=== PATIENT | male | born 1985 | race Caucasian/White ===

== ENCOUNTER 2021-03-30 00:30 | Emergency (ER) | payer OTHER, SELFPAY ==
--- NOTE | 2021-03-30 | ECG_ITS ---
Test Reason : SOB Blood Pressure : / mmHG Vent. Rate : 089 BPM Atrial Rate : 089 BPM P-R Int : 158 ms QRS Dur : 076 ms QT Int : 360 ms P-R-T Axes : 028 015 035 degrees QTc Int : 438 ms Normal sinus rhythm Normal ECG When compared with ECG of 23-OCT-2016 20:50, No significant change was found Referred By: Generic ED Physician Electronically Signed By:William White
--- NOTE | ~2021-03-30 | XR_ITS ---
EXAMINATION: XR CHEST CLINICAL INFORMATION: Shortness of breath COMPARISON: 10/23/2016 TECHNIQUE: Frontal view of the chest was obtained. FINDINGS: No significant abnormality is noted involving the heart, lungs, mediastinum, bony thorax or soft tissues. XR/XR chest 1V IMPRESSION: Unremarkable examination.
[2021-03-30 00:32] VITALS: BP 148/80; BP 156/86; PULSE 98; PULSE 99; RESP 18; TEMP 37; O2SAT 95; BMI 52.9
[2021-03-30 01:20] LABS: Basophils Percent Auto 0.3 % (0-2); Eosinophils Absolute Auto 0.2 X10*3/uL (0.0-0.4); Eosinophils Percent Auto 3.7 % (0-4); Hematocrit 40.7 % (42-52); Hemoglobin 13.5 g/dl (14.0-18.0); Imm Gran Abs Auto 0.01 X10*3/uL (0.00-0.03); Imm Gran Pct Auto 0.2 % (0.0-0.4); Lymphocytes Percent Auto 17.4 % (20-40); MANUAL DIFF FLAG NO; Mean Corpuscular HGB Conc 33.2 g/dl (31.0-36.0); Mean Corpuscular Hemoglobin 27.9 pg (27.0-33.0); Mean Corpuscular Volume 84.1 fL (80-98); Mean Platelet Volume 10.3 fL (9.4-12.4); Monocytes Absolute Auto 0.5 X10*3/uL (0.1-1.2); Monocytes Percent Auto 7.8 % (2-11); Neutrophils Absolute Auto 4.1 X10*3/uL (2.0-8.3); Neutrophils Percent Auto 70.6 % (45-73); Platelet Count 173 X10*3/uL (160-400); Red Blood Count 4.84 X10*6/uL (4.60-5.80); Red Cell Distribution Width 12.6 % (11.0-16.0); White Blood Count 5.7 X10*3/uL (4.8-10.8)
[2021-03-30 01:35] LABS: Lactic Acid 1.2 mmol/L (0.5-2.0)
[2021-03-30 01:36] LABS: COVID-19 Test Negative (Negative); IDNOW Serial# 9DD0AD1C
[2021-03-30 01:45] LABS: Troponin-I High Sensitivity < 3.5 ng/L (<3.5-35.0)
[2021-03-30 01:49] LABS: Alanine Aminotransferase 31 U/L (0-40); Albumin Level 4.2 g/dL (3.5-5.0); Alkaline Phosphatase 122 U/L (39-117); Anion Gap 13 (12-20); Aspartate Amino Transferase 33 U/L (5-37); Bilirubin Total 0.3 mg/dL (0.0-1.0); Blood Urea Nitrogen 18 mg/dL (9-16); Calcium 9.1 mg/dL (8.4-10.2); Carbon Dioxide 27 mmol/L (22-29); Chloride 102 mmol/L (96-108); Creatinine Clr Calc Pharmacy 150.2; Estimated Glomerular Filt Rate > 60; Glucose Random 95 mg/dL (60-115); Potassium 3.7 mmol/L (3.3-5.1); Sodium 138 mmol/L (135-145); Total Protein 7.3 g/dL (6.5-8.0)
--- NOTE | 2021-03-30 03:39 | ED.GENADULT ---
HPI - General Adult General Chief complaint: Dyspnea Stated complaint: INCREASED SOB X'S WEEKS,94% ON DUONEB Time Seen by Provider: 03/30/21 03:38 Source: patient Mode of arrival: ambulatory History of Present Illness HPI narrative: 35-year-old male with history of shortness of breath progressively worsening over the past 2 weeks but denies any cough or sore throat or ear pain. Patient states ?feels like my lungs are sore?. Otherwise, patient denies receiving any COVID-19 vaccination, fevers, chills, but experiencing some nausea but denies any abdominal pain/diarrhea/urinary symptoms. Patient denies body aches, but he states it feels like he has the flu. Related Data Previous Rx's Medication Instructions Recorded prednisone 20 mg tablet 40 mg PO DAILY 4 Days #8 tab 03/30/21 Allergies Allergy/AdvReac Type Severity Reaction Status Date / Time sulfamethoxazole Allergy Severe HIVES Unverified 05/15/20 15:26 [From BACTRIM] trimethoprim [From BACTRIM] Allergy Severe HIVES Unverified 05/15/20 15:26 Sulfa (Sulfonamide Allergy Unknown HIVES Unverified 05/15/20 15:26 Antibiotics) [SULFA (SULFONAMIDE ANTIBIOTICS)] Review of Systems Review of Systems: Pertinent positives and negatives as stated in HPI 10 point review of systems is otherwise negative. PMFSH Past Medical History Source: nursing notes reviewed Medical History Asthma Obesity Social History Social History Advance Directives: No Advance Directives Information Provided: No Physical Exam Vital Signs: Vital Signs: Last Vital Signs Temp 98.6 F 03/30/21 00:32 Pulse 114 H 03/30/21 04:44 Resp 14 03/30/21 04:44 BP 148/77 H 03/30/21 04:44 Pulse Ox 93 03/30/21 04:44 Body Mass Index 52.9 VITAL SIGNS: Reviewed. GENERAL: Well developed, well nourished, in no acute distress. HEAD: Normocephalic/atraumatic EYES: PERRLA, EOMI EARS: Ext canals without abnormality, TMs non-bulging and non-erythematous NOSE: Nares patent bilateral OROPHARYNX: no oral lesions noted, posterior pharynx clear and non-erythematous without noted tonsillar enlargement/erythema/exudates NECK: Supple, no adenopathy LUNGS: Expiratory wheeze with scattered rhonchi, no tachypnea, no retractions SpO2<95> CARDIOVASCULAR: Regular rate and rhythm without noted murmurs ABDOMEN: Obese, Soft, non-tender, non-distended with bowel sounds. SKIN: Inspection of the skin reveals no rashes NEUROLOGIC: Alert and oriented x 4. Strength and sensation to light touch were grossly intact x 4. Course Course Course Narrative: 35-year-old male with history and clinical presentation suggestive of mild asthma exacerbation and patient later endorsed vaping marijuana. Review of all investigations without acute findings and on re-evaluation after receiving albuterol treatment with initial dose of prednisone patient reports that he is feeling much better. He states he ran out of his albuterol inhaler approximately 2 days ago. Patient was then discharged home in stable condition. Medical Decision Making Lab Data Result diagrams: 03/30/21 01:14 03/30/21 01:14 Labs: Lab Results 03/30/21 03/30/21 03/30/21 Range/Units 01:06 01:14 01:14 WBC 5.7 (4.8-10.8) X10*3/uL RBC 4.84 (4.60-5.80) X10*6/uL Hgb 13.5 L (14.0-18.0) g/dl Hct 40.7 L (42-52) % MCV 84.1 (80-98) fL MCH 27.9 (27.0-33.0) pg MCHC 33.2 (31.0-36.0) g/dl RDW 12.6 (11.0-16.0) % Plt Count 173 (160-400) X10*3/uL MPV 10.3 (9.4-12.4) fL Immature Gran % (Auto) 0.2 (0.0-0.4) % Neut % (Auto) 70.6 (45-73) % Lymph % (Auto) 17.4 L (20-40) % Douglas % (Auto) 7.8 (2-11) % Eos % (Auto) 3.7 (0-4) % Baso % (Auto) 0.3 (0-2) % Lymph # (Auto) 1.0 L (1.2-4.9) X10*3/uL Douglas # (Auto) 0.5 (0.1-1.2) X10*3/uL Eos # (Auto) 0.2 (0.0-0.4) X10*3/uL Baso # (Auto) 0.0 (0.0-0.2) X10*3/uL Abs Immat Gran (auto) 0.01 (0.00-0.03) X10*3/uL Absolute Neuts (auto) 4.1 (2.0-8.3) X10*3/uL Absolute Nucleated RBC 0.000 (0.0-0.012) X10*3/uL Nucleated RBC % (auto) 0.0 (0.0-0.2) /100WBC Sodium 138 (135-145) mmol/L Potassium 3.7 (3.3-5.1) mmol/L Chloride 102 (96-108) mmol/L Carbon Dioxide 27 (22-29) mmol/L Anion Gap 13 (12-20) BUN 18 H (9-16) mg/dL Creatinine 0.94 (0.5-1.4) mg/dL Estim Creat Clear Calc 150.2 Estimated GFR > 60 Random Glucose 95 (60-115) mg/dL Lactic Acid (0.5-2.0) mmol/L Calcium 9.1 (8.4-10.2) mg/dL Total Bilirubin 0.3 (0.0-1.0) mg/dL AST 33 (5-37) U/L ALT 31 (0-40) U/L Alkaline Phosphatase 122 H (39-117) U/L Troponin I High Sens (<3.5-35.0) ng/L Total Protein 7.3 (6.5-8.0) g/dL Albumin 4.2 (3.5-5.0) g/dL COVID-19 (PAT) Negative (Negative) COVID-19 Clin Com See Note 03/30/21 03/30/21 Range/Units 01:14 01:14 WBC (4.8-10.8) X10*3/uL RBC (4.60-5.80) X10*6/uL Hgb (14.0-18.0) g/dl Hct (42-52) % MCV (80-98) fL MCH (27.0-33.0) pg MCHC (31.0-36.0) g/dl RDW (11.0-16.0) % Plt Count (160-400) X10*3/uL MPV (9.4-12.4) fL Immature Gran % (Auto) (0.0-0.4) % Neut % (Auto) (45-73) % Lymph % (Auto) (20-40) % Douglas % (Auto) (2-11) % Eos % (Auto) (0-4) % Baso % (Auto) (0-2) % Lymph # (Auto) (1.2-4.9) X10*3/uL Douglas # (Auto) (0.1-1.2) X10*3/uL Eos # (Auto) (0.0-0.4) X10*3/uL Baso # (Auto) (0.0-0.2) X10*3/uL Abs Immat Gran (auto) (0.00-0.03) X10*3/uL Absolute Neuts (auto) (2.0-8.3) X10*3/uL Absolute Nucleated RBC (0.0-0.012) X10*3/uL Nucleated RBC % (auto) (0.0-0.2) /100WBC Sodium (135-145) mmol/L Potassium (3.3-5.1) mmol/L Chloride (96-108) mmol/L Carbon Dioxide (22-29) mmol/L Anion Gap (12-20) BUN (9-16) mg/dL Creatinine (0.5-1.4) mg/dL Estim Creat Clear Calc Estimated GFR Random Glucose (60-115) mg/dL Lactic Acid 1.2 (0.5-2.0) mmol/L Calcium (8.4-10.2) mg/dL Total Bilirubin (0.0-1.0) mg/dL AST (5-37) U/L ALT (0-40) U/L Alkaline Phosphatase (39-117) U/L Troponin I High Sens < 3.5 (<3.5-35.0) ng/L Total Protein (6.5-8.0) g/dL Albumin (3.5-5.0) g/dL COVID-19 (PAT) (Negative) COVID-19 Clin Com ECG Data Attestation: I personally reviewed and interpreted this ECG as follows: Prior ECG tracings: available for review (10/23/2016 no acute changes on comparison) Interpretation: Normal sinus rhythm, HR-89, no STEMI, VA/QRS/QTC are within normal limits. Discharge Plan Discharge Clinical Impression: Asthma with exacerbation Patient Disposition: Home, Self-Care Instructions: Asthma (ED) Additional Instructions: 1. Resume all home medications as prescribed. 2. Follow-up with your primary care provider in the next 1-2 days for re-evaluation and further outpatient management of your asthma, highly recommend you stop vaping marijuana. Return to the ER for acute worsening of symptoms. Prescriptions: New prednisone 20 mg tablet 40 mg PO DAILY 4 Days Qty: 8 RF: 0 Referrals: Physician,Unknown [Primary Care Provider] - 2 days
[2021-03-30] MEDS: Albuterol Sulfate (0.083%) 2.5 MG/3 ML VIAL.NEB 5 MG INHALE (03:55)
[2021-03-30 03:57] VITALS: PULSE 103; O2SAT 93
[2021-03-30] MEDS: Acetaminophen 325 MG TABLET 975 MG PO (04:00)
[2021-03-30] MEDS: predniSONE 20 MG TABLET 40 MG PO (04:01)
[2021-03-30] MEDS: Ibuprofen 400 MG TABLET PO (04:01)
[2021-03-30 04:44] VITALS: BP 148/77; PULSE 114; RESP 14; O2SAT 93
[2021-03-30] MEDS: Albuterol Sulfate 90 MCG 8 GM INHALER 4 PUFF INHALE (05:29)
[2021-03-30 05:30] VITALS: PULSE 109; O2SAT 95
--- NOTE | 2021-03-30 23:26 | PC.NURSE ---
LAB CALLED POSITIVE BLOOD CULTURE. GM + COCCI IN CLUSTERS. REPORTED TO DINA FLEMING NP.
== END 2021-03-30 05:53 | disposition home or self-care (01) ==
PROVIDERS: Emergency Provider Student in an Organized Health Care Education/Training Program
DX: J45.901 Unspecified asthma with (acute) exacerbation (principal); Z20.822 Contact with and (suspected) exposure to COVID-19; E66.9 Obesity, unspecified
CPT/HCPCS: 36415; 71045; 80053; 83605; 84484; 85025; 87040; 87147; 87205; 87635; 93005; 94640; 99284

== ENCOUNTER 2021-03-31 18:19 | Emergency (ER) | payer OTHER, SELFPAY ==
[2021-03-31 19:01] VITALS: BP 158/79; PULSE 90; RESP 18; TEMP 37; O2SAT 98; BMI 41.3
== END 2021-03-31 23:44 | disposition left against medical advice (07) ==
PROVIDERS: Emergency Provider Emergency Medicine; PCP Internal Medicine
DX: R79.89 Other specified abnormal findings of blood chemistry (principal)
CPT/HCPCS: 99282

== ENCOUNTER 2021-04-02 21:30 | Emergency (ER) | payer OTHER, SELFPAY ==
--- NOTE | ~2021-04-02 | XR_ITS ---
EXAMINATION: XR CHEST CLINICAL INFORMATION: Cough COMPARISON: 03/30/2021 TECHNIQUE: Frontal view of the chest was obtained. FINDINGS: Patchy opacities within the bilateral lower lungs, possibly left upper lobe as well however this may relate to summation shadow. No pleural effusion or pneumothorax. Normal heart size and pulmonary vascularity. No acute or suspicious osseous abnormalities. XR/XR chest 1V IMPRESSION: Faint patchy opacities within the lower lungs, and possibly left upper lobe. Findings suggestive of a mild pneumonitis
[2021-04-02 21:51] VITALS: BP 114/80; PULSE 84; RESP 18; TEMP 36.8; O2SAT 96; BMI 41.3
--- NOTE | 2021-04-03 00:31 | ED.GENADULT ---
HPI - General Adult General Chief complaint: Recheck/Abnormal Lab/Rx Stated complaint: weakness, fatigue Time Seen by Provider: 04/03/21 00:26 Source: patient Mode of arrival: ambulatory Limitations: no limitations History of Present Illness HPI narrative: 35-year-old male came in after he was called back from the emergency department for positive blood culture. This is a 35-year-old male who is evaluated in the emergency department for coughing patient found to have unremarkable chest x-ray patient was discharged on short course of prednisone, next day patient went to an urgent care for persistent symptoms and coughing, patient was put on doxycycline and extended course of steroid, patient was called because he grew Gram-positive cocci in cluster in 1 of the blood culture, patient returned to the hospital blood left from the waiting room before being seen, patient returned today because his been feeling dizzy and headache and still coughing. The patient declined any fever, chills. Patient feels overall his lungs are cleaning up and his symptoms is improving. Related Data Home Medications Medication Instructions Recorded Confirmed albuterol sulfate 90 mcg/actuation 2 puff INHALATION QID PRN 03/31/21 aerosol inhaler betamethasone dipropionate 0.05 % appl TOPICAL DIRECTED 03/31/21 topical cream omeprazole 20 mg capsule,delayed 20 mg PO DAILY 03/31/21 release triamcinolone acetonide 0.1 % appl TOPICAL BID PRN 03/31/21 topical cream Previous Rx's Medication Instructions Recorded prednisone 20 mg tablet 40 mg PO DAILY 4 Days #8 tab 03/30/21 albuterol sulfate 90 mcg/actuation 2 puff INHALATION Q4-6H PRN #8.5 g 03/31/21 aerosol inhaler (ProAir HFA) doxycycline hyclate 100 mg tablet 100 mg PO BID 10 Days #20 tab 03/31/21 prednisone 20 mg tablet 20 mg PO DAILY 9 Days #18 tab 03/31/21 Allergies Allergy/AdvReac Type Severity Reaction Status Date / Time sulfamethoxazole Allergy Severe HIVES Verified 04/02/21 21:51 [From BACTRIM] trimethoprim [From BACTRIM] Allergy Severe HIVES Verified 04/02/21 21:51 Sulfa (Sulfonamide Allergy Unknown HIVES Verified 04/02/21 21:51 Antibiotics) [SULFA (SULFONAMIDE ANTIBIOTICS)] Review of Systems Review of Systems: All other systems are reviewed and are negative Constitutional: Reports as per HPI and Reports no additional constitutional complaints Eyes: Reports as per HPI and Reports no additional eye complaints Reports system reviewed and no additional complaints, except as documented Cardiovascular: Reports as per HPI and Reports no additional cardiovascular complaints Respiratory: Reports as per HPI and Reports no additional respiratory complaints Gastrointestinal: Reports as per HPI and Reports no additional gastrointestinal complaints Genitourinary: Reports no additional female genitourinary complaints Musculoskeletal: Reports no additional musculoskeletal complaints Skin/Breast: Reports system reviewed and no additional complaints, except as docu Psychiatric: Reports no additional psychiatric complaints Endocrine: Reports no additional endocrine complaints Hematologic/Lymphatic: Reports no additional hematologic/lymphatic complaints Allergic/Immunologic: Reports no additional allergic/immunologic complaints Reports system reviewed and no additional complaints, except as documented and Reports Abnormal speech present [facility] Past Medical History Medical History Asthma Obesity Social History Social History Advance Directives: No Advance Directives Information Provided: No Physical Exam Vital Signs: Vital Signs: Last Vital Signs Temp 98.2 F 04/02/21 21:51 Pulse 84 04/02/21 21:51 Resp 18 04/02/21 21:51 BP 114/80 04/02/21 21:51 Pulse Ox 96 04/02/21 21:51 Body Mass Index 41.3 Vital signs have been reviewed as appeared to be correct. Blood pressure normal. Heart rate normal. Respiration rate normal. Temperature normal. Oxygen saturation normal. Appearance: Alert. Oriented X3. No acute distress. Head: Normal external exam. Normocephalic. Atraumatic. No Vazquez signs noted. No raccoon eyes noted Eyes: PERRLA. EOMI. Conjunctiva and sclera normal. Eyelids normal. ENT: TM's Normal. Pharynx normal. Uvula midline. Moist mucous membranes. No trismus noted. No drooling noted. No muffled voice noted. Neck: Normal inspection. Neck supple. FROM. No adenopathy. Thyroid Normal. No meningeal signs. No neck mass noted. CVS: Normal heart rate and rhythm. Heart sound normal. No murmurs noted. Pulses normal throughout. Respiratory: No respiratory distress. Painless inspiration. Breath sounds normal. No wheezes/rales/rhonchi noted. Chest nontender. No accessory muscle usage noted or decreased air movement noted. Abdomen: Soft and nontender. Bowel sounds normal in all 4 quadrants. No distention noted. No organomegaly noted. No visible injury noted. Back: No CVA tenderness. Full range of motion noted. Skin: Skin warm and dry. Normal skin color. Normal skin turgor. No rashes/lesions/lacerations noted. Extremities: No lower extremity edema. Extremities exhibit normal range of motion. Extremities nontender. Neuro: Oriented X 3. Cranial nerve exam: II-XII are grossly intact No motor deficit. No sensory deficit. Reflexes normal. Course Course Course Narrative: Assessment and plan. 35-year-old male was called in for positive blood culture for Gram-positive cocci in cluster ?likely contaminated ?patient is feeling better, has a normal wbc's, patient is already taking doxycycline for 10 days course (patient on his 3rd day) patient also have prednisone course. Patient declined any fever or chills. However patient was instructed if he feels any fever or chills or worsening of his breathing or coughing. Blood culture is pending patient will be contacted if any other growth in the culture. Medical Decision Making Lab Data Lab results reviewed: Yes I reviewed the patient's lab results. Result diagrams: 04/03/21 01:33 04/03/21 01:33 Labs: Lab Results 04/03/21 04/03/21 04/03/21 Range/Units 01:19 01:32 01:33 WBC 7.4 (4.8-10.8) X10*3/uL RBC 4.57 L (4.60-5.80) X10*6/uL Hgb 12.9 L (14.0-18.0) g/dl Hct 38.6 L (42-52) % MCV 84.5 (80-98) fL MCH 28.2 (27.0-33.0) pg MCHC 33.4 (31.0-36.0) g/dl RDW 12.8 (11.0-16.0) % Plt Count 222 D (160-400) X10*3/uL MPV 9.8 (9.4-12.4) fL Immature Gran % (Auto) 0.7 H (0.0-0.4) % Neut % (Auto) 68.4 (45-73) % Lymph % (Auto) 26.6 (20-40) % [place] % (Auto) 4.2 (2-11) % Eos % (Auto) 0.0 (0-4) % Baso % (Auto) 0.1 (0-2) % Lymph # (Auto) 2.0 (1.2-4.9) X10*3/uL [place]mer # (Auto) 0.3 (0.1-1.2) X10*3/uL Eos # (Auto) 0.0 (0.0-0.4) X10*3/uL Baso # (Auto) 0.0 (0.0-0.2) X10*3/uL Abs Immat Gran (auto) 0.05 H (0.00-0.03) X10*3/uL Absolute Neuts (auto) 5.0 (2.0-8.3) X10*3/uL Absolute Nucleated RBC 0.000 (0.0-0.012) X10*3/uL Nucleated RBC % (auto) 0.0 (0.0-0.2) /100WBC Sodium (135-145) mmol/L Potassium (3.3-5.1) mmol/L Chloride (96-108) mmol/L Carbon Dioxide (22-29) mmol/L Anion Gap (12-20) BUN (9-16) mg/dL Creatinine (0.5-1.4) mg/dL Estim Creat Clear Calc Estimated GFR Random Glucose (60-115) mg/dL Lactic Acid 0.7 (0.5-2.0) mmol/L Calcium (8.4-10.2) mg/dL Urine Color YELLOW Urine Appearance CLEAR Urine pH 7.0 (5.0-8.0) Ur Specific [place] 1.020 (1.005-1.025) Urine Protein NEG (NEG-TRACE) MG/DL Urine Glucose (UA) NEG (NEG) MG/DL Urine Ketones NEG (NEG) MG/DL Urine Blood NEG (NEG) Urine Nitrite NEG (NEG) Ur Leukocyte Esterase NEG (NEG) 04/03/21 Range/Units 01:33 WBC (4.8-10.8) X10*3/uL RBC (4.60-5.80) X10*6/uL Hgb (14.0-18.0) g/dl Hct (42-52) % MCV (80-98) fL MCH (27.0-33.0) pg MCHC (31.0-36.0) g/dl RDW (11.0-16.0) % Plt Count (160-400) X10*3/uL MPV (9.4-12.4) fL Immature Gran % (Auto) (0.0-0.4) % Neut % (Auto) (45-73) % Lymph % (Auto) (20-40) % [place] % (Auto) (2-11) % Eos % (Auto) (0-4) % Baso % (Auto) (0-2) % Lymph # (Auto) (1.2-4.9) X10*3/uL [place] # (Auto) (0.1-1.2) X10*3/uL Eos # (Auto) (0.0-0.4) X10*3/uL Baso # (Auto) (0.0-0.2) X10*3/uL Abs Immat Gran (auto) (0.00-0.03) X10*3/uL Absolute Neuts (auto) (2.0-8.3) X10*3/uL Absolute Nucleated RBC (0.0-0.012) X10*3/uL Nucleated RBC % (auto) (0.0-0.2) /100WBC Sodium 138 (135-145) mmol/L Potassium 4.2 (3.3-5.1) mmol/L Chloride 104 (96-108) mmol/L Carbon Dioxide 24 (22-29) mmol/L Anion Gap 14 (12-20) BUN 16 (9-16) mg/dL Creatinine 0.80 (0.5-1.4) mg/dL Estim Creat Clear Calc 178.5 Estimated GFR > 60 Random Glucose 112 (60-115) mg/dL Lactic Acid (0.5-2.0) mmol/L Calcium 9.0 (8.4-10.2) mg/dL Urine Color Urine Appearance Urine pH (5.0-8.0) Ur Specific [place] (1.005-1.025) Urine Protein (NEG-TRACE) MG/DL Urine Glucose (UA) (NEG) MG/DL Urine Ketones (NEG) MG/DL Urine Blood (NEG) Urine Nitrite (NEG) Ur Leukocyte Esterase (NEG) Imaging Data Chest x-ray: Radiologist's impression: Faint patchy opacities within the lower lungs, and possibly left upper lobe. Findings suggestive of a mild pneumonitis ? Discharge Plan Discharge Clinical Impression: Pneumonitis Patient Disposition: Home, Self-Care Instructions: Pneumonitis (ED) Additional Instructions: Continue with your antibiotic and steroid until he finished the whole course. Return if any fever, chills, worsening of breathing or coughing. Prescriptions: No Action prednisone 20 mg tablet 40 mg PO DAILY 4 Days Qty: 8 RF: 0 omeprazole 20 mg capsule,delayed release(DR/EC) 20 mg PO DAILY RF: 0 betamethasone dipropionate 0.05 % cream topical DIRECTED RF: 0 triamcinolone acetonide 0.1 % cream topical BID PRNRF: 0 albuterol sulfate 90 mcg/actuation HFA aerosol inhaler 2 puff inhalation QID PRN (Reason: wheezing) RF: 0 doxycycline hyclate 100 mg tablet 100 mg PO BID 10 Days Qty: 20 RF: 0 prednisone 20 mg tablet 20 mg PO DAILY 9 Days Qty: 18 RF: 0 albuterol sulfate [ProAir HFA] 90 mcg/actuation HFA aerosol inhaler 2 puff inhalation Q4-6H PRN (Reason: shortness of breath or wheezing) Qty: 8.5 RF: 0 Referrals: Luis Rodas MD [Primary Care Provider] - 2 days
[2021-04-03 01:25] LABS: Glucose Urine UA NEG (NEG); Leukocyte Esterase Urine NEG (NEG); Nitrite Urine NEG (NEG); Urine Blood NEG (NEG); Urine Ketones NEG (NEG); Urine Protein NEG (NEG-TRACE)
[2021-04-03 01:26] LABS: Appearance Urine CLEAR; Color Urine YELLOW
[2021-04-03 01:40] LABS: Basophils Percent Auto 0.1 % (0-2); Hematocrit 38.6 % (42-52); Hemoglobin 12.9 g/dl (14.0-18.0); Imm Gran Abs Auto 0.05 X10*3/uL (0.00-0.03); Imm Gran Pct Auto 0.7 % (0.0-0.4); Lymphocytes Percent Auto 26.6 % (20-40); MANUAL DIFF FLAG NO; Mean Corpuscular HGB Conc 33.4 g/dl (31.0-36.0); Mean Corpuscular Hemoglobin 28.2 pg (27.0-33.0); Mean Corpuscular Volume 84.5 fL (80-98); Mean Platelet Volume 9.8 fL (9.4-12.4); Monocytes Absolute Auto 0.3 X10*3/uL (0.1-1.2); Monocytes Percent Auto 4.2 % (2-11); Neutrophils Percent Auto 68.4 % (45-73); Platelet Count 222 X10*3/uL (160-400); Red Blood Count 4.57 X10*6/uL (4.60-5.80); Red Cell Distribution Width 12.8 % (11.0-16.0); White Blood Count 7.4 X10*3/uL (4.8-10.8)
[2021-04-03 02:01] LABS: Lactic Acid 0.7 mmol/L (0.5-2.0)
[2021-04-03 02:01] LABS: Anion Gap 14 (12-20); Blood Urea Nitrogen 16 mg/dL (9-16); Carbon Dioxide 24 mmol/L (22-29); Chloride 104 mmol/L (96-108); Creatinine Clr Calc Pharmacy 178.5; Estimated Glomerular Filt Rate > 60; Glucose Random 112 mg/dL (60-115); Potassium 4.2 mmol/L (3.3-5.1); Sodium 138 mmol/L (135-145)
[2021-04-03 02:24] LABS: Influenza A PCR NEGATIVE (Negative); Influenza B PCR NEGATIVE (Negative); Resp Syncy Virus RNA Qual PCR NEGATIVE (Negative); SARS COV2 PCR INHOUSE NEGATIVE (Negative)
== END 2021-04-03 02:47 | disposition home or self-care (01) ==
PROVIDERS: Emergency Provider Emergency Medicine; PCP Internal Medicine
DX: J18.9 Pneumonia, unspecified organism (principal); J45.909 Unspecified asthma, uncomplicated; Z79.899 Other long term (current) drug therapy; Z20.822 Contact with and (suspected) exposure to COVID-19
CPT/HCPCS: 0241U; 36415; 71045; 80048; 81003; 83605; 85025; 87040; 99283

== ENCOUNTER 2022-08-09 12:13 | Emergency (ER) | payer OTHER, SELFPAY ==
--- NOTE | ~2022-08-09 | XR_ITS ---
EXAMINATION: XR CHEST CLINICAL INFORMATION: Shortness of breath. COMPARISON: Chest x-ray 04/03/2021. TECHNIQUE: 2 views of the chest were obtained. FINDINGS: The lungs are well expanded with patchy opacity seen in the lingula suspicious for developing infiltrate. There is atelectatic changes in left lung base. Rest of the lungs are clear. The heart size and pulmonary vascularity is normal. XR/XR chest 2V IMPRESSION: Patchy opacity in the lingula suspicious for developing infiltrate. There is atelectatic changes in left lung base.
[2022-08-09 12:26] VITALS: BP 139/76; PULSE 103; RESP 18; TEMP 36.7; O2SAT 94; BMI 37.2
--- NOTE | 2022-08-09 12:28 | ED.URI ---
HPI - URI/Sore Throat General Chief Complaint: Upper Respiratory Symptoms Stated Complaint: Lungs hurt, chest pain, SOB Time Seen by Provider: 08/09/22 13:22 Source: patient Mode of arrival: ambulatory Limitations: no limitations History of Present Illness HPI Narrative: 36 yo male with asthma here with cough, chest discomfort with coughing x several days. Cough is productive with brown sputum. No fevers, chills, shortness of breath, leg swelling or leg pain. No recent travel, no sick contact. No history of DVT or PE. No family history of same. Related Data Home Medications Medication Instructions Recorded Confirmed albuterol sulfate 90 mcg/actuation 2 puff inhalation QID PRN wheezing 03/31/21 aerosol inhaler betamethasone dipropionate 0.05 % appl topical DIRECTED 03/31/21 topical cream omeprazole 20 mg capsule,delayed 20 mg PO DAILY 03/31/21 release triamcinolone acetonide 0.1 % appl topical BID PRN 03/31/21 topical cream Previous Rx's Medication Instructions Recorded prednisone 20 mg tablet 40 mg PO DAILY 4 days #8 tabs 03/30/21 albuterol sulfate 90 mcg/actuation 2 puff inhalation Q4-6H PRN 03/31/21 aerosol inhaler (ProAir HFA) shortness of breath or wheezing #8.5 grams doxycycline hyclate 100 mg tablet 100 mg PO BID 10 days #20 tabs 03/31/21 prednisone 20 mg tablet 20 mg PO DAILY 9 days #18 tabs 03/31/21 prednisone 20 mg tablet 60 mg PO DAILY 3 days #9 tabs 05/13/21 doxycycline monohydrate 100 mg 100 mg PO BID 14 days #28 caps 08/09/22 capsule prednisone 20 mg tablet 40 mg PO DAILY #8 tabs 08/09/22 Allergies Allergy/AdvReac Type Severity Reaction Status Date / Time sulfamethoxazole Allergy Severe HIVES Verified 08/09/22 12:26 [From BACTRIM] trimethoprim [From BACTRIM] Allergy Severe HIVES Verified 08/09/22 12:26 Sulfa (Sulfonamide Allergy Unknown HIVES Verified 08/09/22 12:26 Antibiotics) [SULFA (SULFONAMIDE ANTIBIOTICS)] Review of Systems Review of Systems: Yes all other systems are reviewed and are negative Constitutional: Constitutional: Reports no additional constitutional complaints, Denies body ache(s), Denies chills, Denies fever(s), Denies headache(s) and Denies weakness Eyes: Eyes: Reports no additional eye complaints and Denies change in vision ENT: Reports system reviewed and no additional complaints, except as documented, Denies dizziness, Denies headache(s), Denies nasal congestion, Denies nasal discharge and Denies neck pain Cardiovascular: Cardiovascular: Reports no additional cardiovascular complaints, Reports chest pain, Denies leg edema and Denies dyspnea Respiratory: Respiratory: Reports no additional respiratory complaints, Reports cough, Denies dyspnea and Reports wheezing Gastrointestinal: Gastrointestinal: Reports no additional gastrointestinal complaints, Denies abdominal pain, Denies diarrhea, Denies nausea and Denies vomiting Genitourinary: Genitourinary: Denies urinary incontinence Musculoskeletal: Musculoskeletal: Reports no additional musculoskeletal complaints, Denies back pain, Denies arthralgias, Denies joint swelling, Denies neck pain, Denies numbness and Denies tingling Integumentary/Breasts: Skin/Breast: Reports system reviewed and no additional complaints, except as docu and Denies rash Neurologic: Reports system reviewed and no additional complaints, except as documented, Denies Abnormal speech present, Denies dizziness, Denies headache(s), Denies numbness, Denies tingling and Denies weakness Allergic/Immunologic: Allergic/Immunologic: Reports wheezing PMFSH Past Medical History Attestation statement: The following information was validated with the patient. Source: old records reviewed and nursing notes reviewed Medical History Asthma Obesity Social History Social History Patient Tobacco Use Status: Former Tobacco user Advance Directives: No Advance Directives Information Provided: No Physical Exam Vital Signs: Vital Signs: Last Vital Signs Temp 98.1 F 08/09/22 12:26 Pulse 103 H 08/09/22 12:26 Resp 18 08/09/22 12:26 BP 139/76 08/09/22 12:26 Pulse Ox 94 08/09/22 12:26 O2 Del Method 08/09/22 12:26 BMI result Body Mass Index 37.2 Const: General: cooperative, healthy appearing, comfortable and no acute distress Orientation/consciousness: patient oriented x3 Limitations: no limitations HEENT: Head: Yes normal to inspection Ears: hearing grossly normal bilaterally and TM's normal bilaterally General nose exam: Normal external nose present Face and sinus: Yes normal facial exam Mouth: Normal oral and palatal mucosa present Throat: Yes posterior oropharynx normal, Yes tonsils normal and Yes uvula midline Eyes: General: appearance normal, both eyes and all related structures Pupils: Equal, round and reactive pupils present Neck: Neck: Yes normal visual inspection, Yes full ROM, Yes no lymphadenopathy and Yes no meningeal signs Chest: Chest palpation & inspection: normal inspection of the chest Resp: Other: Inspiratory and expiratory wheezing throughout Effort & Inspection: normal respiratory effort Cardio: Rate: regular rate Rhythm: regular rhythm Peripheral pulses: Peripheral pulses 2+ throughout GI: Inspection: Yes normal to inspection Palpation (GI): Soft to palpation and nontender Auscultation: normal bowel sounds Back/Spine/Pelvis: Thoracic/Lumbar Spine: thoracic and lumbar spine normal to inspection Skin: General skin exam: no rashes or lesions noted Neuro: General: patient oriented x3, no meningeal signs, no focal motor deficits and normal sensation to monofilament Cranial nerves: Yes Equal, round and reactive pupils present Cognition (Neuro): normal cognition Speech: No Abnormal speech present Gait exam (Neuro): Normal gait present Motor exam (neuro): 5/5 motor strength present throughout Extrem: General: Yes normal to inspection, Yes no pedal edema and Yes no calf tenderness Course Course Course Narrative: This is rapid medical exam. Deferred additional HPI, ROS, PE to primary provider. 36 yo male with asthma here with cough, chest discomfort with coughing x several days. No leg swelling/leg pain, recent travel/surgery, h/o DVT/PE. Will check CXR, flu/covid/rsv testing. VSS Reevaluation(s) Reevaluation #1: Patient with inspiratory and expiratory wheezing throughout. Will give DuoNeb, p.o. prednisone. Patient will be discharged with albuterol MDI Reevaluation #2: FINDINGS: The lungs are well expanded with patchy opacity seen in the lingula suspicious for developing infiltrate. There is atelectatic changes in left lung base. Rest of the lungs are clear. The heart size and pulmonary vascularity is normal. XR/XR chest 2V IMPRESSION: Patchy opacity in the lingula suspicious for developing infiltrate. ? There is atelectatic changes in left lung base. Patient with improvement of symptoms post nebulizer. Chest x-ray concerning for developing infiltrate. Patient be treated with course of antibiotics, prednisone. Patient has had several days of symptoms and so I do not think that him a fluid be helpful. This was discussed with the patient and he is agreeable to plan of care. Reviewed worrisome signs and symptoms of when to return to the emergency room. Comfortable plan for discharge home. Medications Administered Discontinued Medications Generic Name Dose Route Start Last Admin Trade Name Ami PRN Reason Stop Dose Admin Albuterol Sulfate 2 puff 08/09/22 14:03 08/09/22 14:17 Albuterol Sulfate 90 Mcg 8 Gm Inhaler INHALE 08/09/22 14:04 2 puff ONCE ONE Administration Albuterol/Ipratropium 3 ml 08/09/22 14:00 08/09/22 14:17 Albuterol/Iprat 2.5/0.5mg 3 Ml Ampul.Neb INHALE 08/09/22 14:01 3 ml ONCE ONE Administration Prednisone 60 mg 08/09/22 14:00 08/09/22 14:05 Prednisone 20 Mg Tablet PO 08/09/22 14:01 60 mg ONCE ONE Administration Medical Decision Making Medical Decision Making [facility] Narrative: To the 36-year-old male with a history of asthma who presents with cough which is productive, chest discomfort with coughing for the last few days. Vitals are stable. Will need testing for flu, COVID, RSV and chest x-ray. Differential Diagnosis Differential Diagnoses: The differential diagnosis associated with the presentation includes Pneumonia, COVID, influenza, otitis media, asthma exacerbation Lab Data [facility] Lab Attestation statement: I reviewed the patient's lab results. Labs: Lab Results 08/09/22 Range/Units 12:52 Influenza Type A (PCR) POSITIVE A (Negative) Influenza Type B (PCR) NEGATIVE (Negative) RSV RNA Qual (PCR) NEGATIVE (Negative) SARS-CoV-2 RNA (RT-PCR) NEGATIVE (Negative) Radiology Impression Discussion of test interpretation with radiology: I have reviewed the radiologist's reading. Radiologist Impression: CXR FINDINGS: The lungs are well expanded with patchy opacity seen in the lingula suspicious for developing infiltrate. There is atelectatic changes in left lung base. Rest of the lungs are clear. The heart size and pulmonary vascularity is normal. XR/XR chest 2V IMPRESSION: Patchy opacity in the lingula suspicious for developing infiltrate. ? There is atelectatic changes in left lung base. Prescription Management Tamiflu-not given due to length of symptoms. Discussed with patient Discharge Plan Discharge Clinical Impression: Influenza, Pneumonia due to virus Patient Disposition: Home, Self-Care Instructions: Viral Pneumonia (ED), Influenza (ED) Additional Instructions: Your flu screen is positive. Her screen for COVID and RSV are negative. Use albuterol 2 puffs every 4-6 hours as needed for cough or wheezing Start prednisone tomorrow Increase fluids, rest Take Motrin or Tylenol for pain as needed Return for worsening symptoms X-ray is concerning for a pneumonia. Therefore we are starting you on antibiotics Prescriptions: New prednisone 20 mg tablet 40 mg PO DAILY Qty: 8 0RF doxycycline monohydrate 100 mg capsule 100 mg PO BID 14 Days Qty: 28 0RF No Action prednisone 20 mg tablet 40 mg PO DAILY 4 Days Qty: 8 0RF omeprazole 20 mg capsule,delayed release(DR/EC) 20 mg PO DAILY betamethasone dipropionate 0.05 % cream topical DIRECTED triamcinolone acetonide 0.1 % cream topical BID PRN albuterol sulfate 90 mcg/actuation HFA aerosol inhaler 2 puff inhalation QID PRN (Reason: wheezing) doxycycline hyclate 100 mg tablet 100 mg PO BID 10 Days Qty: 20 0RF prednisone 20 mg tablet 20 mg PO DAILY 9 Days Qty: 18 0RF Rx Instructions: 3 tabs/60mg for 3 days 2 tabs/40mg for 3 days 1 tab/20mg for 3 days albuterol sulfate [ProAir HFA] 90 mcg/actuation HFA aerosol inhaler 2 puff inhalation Q4-6H PRN (Reason: shortness of breath or wheezing) Qty: 8.5 0RF prednisone 20 mg tablet 60 mg PO DAILY 3 Days Qty: 9 0RF Referrals: Luis Rodas III, MD [Primary Care Provider] - 5 days (as needed)
[2022-08-09 13:47] LABS: Influenza A PCR POSITIVE (Negative); Influenza B PCR NEGATIVE (Negative); Resp Syncy Virus RNA Qual PCR NEGATIVE (Negative); SARS COV2 PCR INHOUSE NEGATIVE (Negative)
[2022-08-09] MEDS: predniSONE 20 MG TABLET 60 MG PO (14:05)
[2022-08-09] MEDS: Albuterol Sulfate 90 MCG 8 GM INHALER 2 PUFF INHALE (14:17)
[2022-08-09] MEDS: Albuterol/Iprat 2.5/0.5MG 3 ML AMPUL.NEB INHALE (14:17)
== END 2022-08-09 15:02 | disposition home or self-care (01) ==
PROVIDERS: Nurse Practitioner Family; Emergency Provider Emergency Medicine; PCP Internal Medicine
DX: J10.08 Influenza due to other identified influenza virus with other specified pneumonia (principal); J15.8 Pneumonia due to other specified bacteria; Z20.822 Contact with and (suspected) exposure to COVID-19; E66.9 Obesity, unspecified; Z68.37 Body mass index [BMI] 37.0-37.9, adult; J45.909 Unspecified asthma, uncomplicated; Z79.899 Other long term (current) drug therapy; Z87.891 Personal history of nicotine dependence
CPT/HCPCS: 0241U; 71046; 94640; 99283; 99284

== ENCOUNTER 2023-03-10 16:28 | Emergency (ER) | payer OTHER, SELFPAY ==
--- NOTE | ~2023-03-10 | XR_ITS ---
EXAMINATION: XR CHEST CLINICAL INFORMATION: Productive cough, fever. COMPARISON: None available. TECHNIQUE: 2 views of the chest were obtained. FINDINGS: Normal appearance of the cardiomediastinal silhouette. No focal airspace opacity, pleural effusion or pneumothorax. Artifactual vertically oriented lucency in the lateral left lower lobe, most likely related with summation artifacts from skin folds. No acute osseous findings. Included portions of the upper abdomen are within normal limits. Thoracic spondylosis. XR/XR chest 2V IMPRESSION: No acute cardiopulmonary findings.
--- NOTE | ~2023-03-10 | US_ITS ---
EXAMINATION: US ABDOMEN LIMITED CLINICAL INFORMATION: Right upper quadrant pain. History of liver disease.. COMPARISON: None available. TECHNIQUE: Real-time imaging of the right upper quadrant abdominal viscera.: Doppler exam used. FINDINGS: PANCREAS: Obscured by bowel gas LIVER: Normal. The liver is normal in size. Right lobe of liver measures 18.5 cm The liver contour is normal. Mild increased echogenicity of liver parenchyma with coarsening of the echotexture. No focal hepatic lesion. There is no intrahepatic biliary duct dilatation seen. GALLBLADDER: Normal. The gallbladder is physiologically distended without evidence of stones, sludge, polyps, wall thickening or pericholecystic fluid. COMMON BILE DUCT: Normal in caliber measuring 0.4 cm in diameter. RIGHT KIDNEY: Normal. No hydronephrosis. No renal calculi or focal parenchymal lesions. The kidney measures 9.9 cm in maximum dimension. FREE FLUID: None. US/US abdomen limited IMPRESSION: 1. No acute abnormality. No gallstone or acute change of gallbladder wall. No bile duct dilatation. 2. Mild increased echogenicity of liver parenchyma with coarsening of the echotexture. This is consistent with history of liver disease.
--- NOTE | ~2023-03-10 | CT_ITS ---
EXAMINATION: CT ABDOMEN AND PELVIS WITHOUT CONTRAST CLINICAL INFORMATION: Abdominal pain rule out colitis vs diverticulitis COMPARISON: None available. TECHNIQUE: Multidetector volumetric imaging was performed from the superior aspect of the liver through the pubic symphysis. Sagittal and coronal reformatted images were obtained on the technologist's workstation. This CT examination was performed using dose optimization techniques as appropriate, variously including the following: *Automated exposure control *Adjustment of mA and/or kV according to patient size (this includes techniques or standardized protocols for targeted exams where dose is matched to indication/reason for exam; i.e. extremities or head) *Use of iterative reconstruction technique DLP: 789 mGy-cm FINDINGS: LUNG BASES: The visualized lung bases are unremarkable. LIVER, GALLBLADDER, AND BILIARY TREE: The liver is normal in size, shape, and attenuation. No focal hepatic lesion or biliary ductal dilatation is identified on this noncontrast exam. The gallbladder is unremarkable with no evidence of radiopaque gallstones, gallbladder wall thickening, or obvious pericholecystic inflammatory changes. PANCREAS: Unremarkable. SPLEEN: Borderline enlarged. ADRENAL GLANDS: Unremarkable. KIDNEYS AND URETERS: The kidneys are normal in size, shape, and attenuation. No hydronephrosis, hydroureter, or calculi seen. No perinephric stranding. BLADDER: Nearly empty and not well evaluated. GASTROINTESTINAL TRACT: Small hiatal hernia. No evidence of bowel obstruction or significant wall thickening. The appendix is unremarkable. No free fluid or free air is seen. ABDOMINAL WALL: No significant hernia is appreciated. LYMPH NODES: Normal. VASCULAR: Unremarkable. PELVIC VISCERA: Unremarkable. OSSEOUS STRUCTURES: Unremarkable. CT/CT abdomen pelvis wo IV con IMPRESSION: No acute findings identified in the abdomen/pelvis.
--- NOTE | 2023-03-10 17:53 | ED.GENADULT ---
HPI - General Adult General Chief complaint: Abdominal Pain Stated complaint: abd pain,blood in urine sent from urgent care Time Seen by Provider: 03/10/23 22:03 Source: patient Mode of arrival: ambulatory Limitations: no limitations History of Present Illness HPI narrative: 37-year-old male came in for evaluation of upper abdominal pain x1 day. Pain is localized to the epigastric area and left upper quadrant area, pain described as dull aching pain that has been constant for 1 day pain is worse with food associated with nausea but no vomiting, no diarrhea. Patient also been having wheezing and difficulty breathing, dry coughing, no sick contacts. Related Data Home Medications Medication Instructions Recorded Confirmed albuterol sulfate 90 mcg/actuation 2 puff inhalation QID PRN wheezing 03/31/21 aerosol inhaler betamethasone dipropionate 0.05 % appl topical DIRECTED 03/31/21 topical cream omeprazole 20 mg capsule,delayed 20 mg PO DAILY 03/31/21 release triamcinolone acetonide 0.1 % appl topical BID PRN 03/31/21 topical cream Previous Rx's Medication Instructions Recorded prednisone 20 mg tablet 40 mg PO DAILY 4 days #8 tabs 03/30/21 albuterol sulfate 90 mcg/actuation 2 puff inhalation Q4-6H PRN 03/31/21 aerosol inhaler (ProAir HFA) shortness of breath or wheezing #8.5 grams doxycycline hyclate 100 mg tablet 100 mg PO BID 10 days #20 tabs 03/31/21 prednisone 20 mg tablet 20 mg PO DAILY 9 days #18 tabs 03/31/21 prednisone 20 mg tablet 60 mg PO DAILY 3 days #9 tabs 05/13/21 doxycycline monohydrate 100 mg 100 mg PO BID 14 days #28 caps 08/09/22 capsule prednisone 20 mg tablet 40 mg PO DAILY #8 tabs 08/09/22 Allergies Allergy/AdvReac Type Severity Reaction Status Date / Time sulfamethoxazole Allergy Severe HIVES Verified 08/09/22 12:26 [From BACTRIM] trimethoprim [From BACTRIM] Allergy Severe HIVES Verified 08/09/22 12:26 Sulfa (Sulfonamide Allergy Unknown HIVES Verified 08/09/22 12:26 Antibiotics) [SULFA (SULFONAMIDE ANTIBIOTICS)] Review of Systems Review of Systems: All other systems are reviewed and are negative Constitutional: Reports as per HPI and Reports no additional constitutional complaints Eyes: Reports as per HPI and Reports no additional eye complaints Reports system reviewed and no additional complaints, except as documented Cardiovascular: Reports as per HPI and Reports no additional cardiovascular complaints Respiratory: Reports as per HPI and Reports no additional respiratory complaints Gastrointestinal: Reports as per HPI and Reports no additional gastrointestinal complaints Genitourinary: Reports no additional female genitourinary complaints Musculoskeletal: Reports no additional musculoskeletal complaints Skin/Breast: Reports system reviewed and no additional complaints, except as docu Psychiatric: Reports no additional psychiatric complaints Endocrine: Reports no additional endocrine complaints Hematologic/Lymphatic: Reports no additional hematologic/lymphatic complaints Allergic/Immunologic: Reports no additional allergic/immunologic complaints Reports system reviewed and no additional complaints, except as documented and Reports Abnormal speech present [facility] Past Medical History Medical History Asthma Obesity Social History Social History Alcohol intake: never Patient Tobacco Use Status: Former Tobacco user Smoked in Last 30 Days: No Use of substances other than those prescribed or required for medical reasons: No Advance Directives: No Advance Directives Information Provided: Yes Physical Exam ED Vital Signs: Vital Signs - 24 hr 03/10/23 17:54 03/10/23 19:46 03/10/23 22:52 Temperature 98.2 F 98.6 F Pulse Rate 83 77 77 Respiratory Rate 18 16 18 Blood Pressure 176/80 H 129/77 Pulse Oximetry 99 98 Oxygen Delivery Method Room Air Room Air 03/11/23 00:19 Temperature 98.4 F Pulse Rate 93 Respiratory Rate 18 Blood Pressure 123/59 L Pulse Oximetry 95 Oxygen Delivery Method Room Air BMI result Body Mass Index 35.3 Vital signs have been reviewed as appeared to be correct. Blood pressure normal. Heart rate normal. Respiration rate normal. Temperature normal. Oxygen saturation normal. Appearance: Alert. Oriented X3. No acute distress. Head: Normal external exam. Normocephalic. Atraumatic. No Vazquez signs noted. No raccoon eyes noted Eyes: PERRLA. EOMI. Conjunctiva and sclera normal. Eyelids normal. ENT: TM's Normal. Pharynx normal. Uvula midline. Moist mucous membranes. No trismus noted. No drooling noted. No muffled voice noted. Neck: Normal inspection. Neck supple. FROM. No adenopathy. Thyroid Normal. No meningeal signs. No neck mass noted. CVS: Normal heart rate and rhythm. Heart sound normal. No murmurs noted. Pulses normal throughout. Respiratory: No respiratory distress. Painless inspiration. Breath sounds normal. Diffuse bilateral expiratory wheezing with prolonged expiration.. Chest nontender. No accessory muscle usage noted or decreased air movement noted. Abdomen: Soft, epigastric tenderness, no rebound tenderness, no guarding. Bowel sounds normal in all 4 quadrants. No distention noted. No organomegaly noted. No visible injury noted. Back: No CVA tenderness. Full range of motion noted. Skin: Skin warm and dry. Normal skin color. Normal skin turgor. No rashes/lesions/lacerations noted. Extremities: No lower extremity edema. Extremities exhibit normal range of motion. Extremities nontender. Neuro: Oriented X 3. Cranial nerve exam: II-XII are grossly intact No motor deficit. No sensory deficit. Reflexes normal. Course Course Course Narrative: This is a rapid medical exam: Additional HPI, ROS, PE not included below will be deferred to primary provider. Patient is a 23-year-old female presenting to the emergency department with complaint of epigastric abdominal pain, nausea, vomiting, and diarrhea since last night. Does not feel as though she ate anything bad last night, states she made herself pasta at home. Denies fever. Denies bloody or coffee ground emesis, denies blood in stool or black stool. Denies other sick family members in the home. Patient is afebrile and nontoxic appearing in triage. Plan: labs, UA, RUQ U/S Reevaluation(s) Reevaluation #1: Abdominal pain, nausea, vomiting, diarrhea, unremarkable ultrasound for the gallbladder, unremarkable CT for abdominal pathology. Were reassured discharged to follow-up with PCP. Time: 01:47 Medications Administered Discontinued Medications Generic Name Dose Route Start Last Admin Trade Name Freq PRN Reason Stop Dose Admin Albuterol Sulfate 5 mg 03/10/23 22:29 03/10/23 22:49 Albuterol Sulfate (0.083%) 2.5 Mg/3 Ml Vial.Neb INHALE 03/10/23 22:30 5 mg ONCE ONE Administration Albuterol/Ipratropium 3 ml 03/10/23 22:29 03/10/23 23:02 Albuterol/Iprat 2.5/0.5mg 3 Ml Ampul.Neb INHALE 03/10/23 22:30 3 ml ONCE ONE Administration Medical Decision Making Differential Diagnosis Differential Diagnoses: The differential diagnosis associated with the presentation includes (Acute pancreatitis, cholecystitis, cholelithiasis, acute appendicitis, colitis, electrolyte abnormality, severe anemia, hematuria, UTI.) Admission/Observation Consideration of admission/observation: Escalation of care including admission/observation considered Lab Data MDM Lab Attestation statement: I reviewed the patient's lab results. 03/10/23 18:06 03/10/23 18:06 Labs: Lab Results 03/10/23 03/10/23 03/10/23 Range/Units 18:06 18:06 19:45 WBC 11.2 H (4.8-10.8) X10*3/uL RBC 5.33 (4.60-5.80) X10*6/uL Hgb 15.1 (14.0-18.0) g/dl Hct 44.8 (42.0-52.0) % MCV 84.1 (80.0-98.0) fL MCH 28.3 (27.0-33.0) pg MCHC 33.7 (31.0-36.0) g/dl RDW 12.3 (11.0-16.0) % Plt Count 237 (160-400) X10*3/uL MPV 10.3 (9.4-12.4) fL Immature Gran % (Auto) 0.3 (0.0-0.4) % Neut % (Auto) 69.7 (45-73) % Lymph % (Auto) 20.4 (20-40) % [place] % (Auto) 4.6 (2-11) % Eos % (Auto) 4.5 H (0-4) % Baso % (Auto) 0.5 (0-2) % Lymph # (Auto) 2.3 (1.2-4.9) X10*3/uL [place] # (Auto) 0.5 (0.1-1.2) X10*3/uL Eos # (Auto) 0.5 H (0.0-0.4) X10*3/uL Baso # (Auto) 0.1 (0.0-0.2) X10*3/uL Abs Immat Gran (auto) 0.03 (0.00-0.03) X10*3/uL Absolute Neuts (auto) 7.8 (2.0-8.3) x10*3/uL Absolute Nucleated RBC 0.000 (0.0-0.012) X10*3/uL Nucleated RBC % (auto) 0.0 (0.0-0.2) /100WBC Sodium 139 (135-145) mmol/L Potassium 4.4 (3.3-5.1) mmol/L Chloride 106 (96-108) mmol/L Carbon Dioxide 23 (22-29) mmol/L Anion Gap 14 (12-20) BUN 24 H (9-16) mg/dL Creatinine 0.83 (0.5-1.4) mg/dL Estim Creat Clear Calc 155.4 Estimated GFR > 60 Random Glucose 108 (60-115) mg/dL Calcium 10.1 D (8.4-10.2) mg/dL Total Bilirubin 0.5 (0.0-1.0) mg/dL AST 27 (5-37) U/L ALT 30 (0-40) U/L Alkaline Phosphatase 108 (39-117) U/L Total Protein 7.7 (6.5-8.0) g/dL Albumin 4.3 (3.5-5.0) g/dL Lipase 11 (8-78) U/L Urine Color Yellow Urine Appearance Clear Urine pH 5.5 (5.0-9.0) Ur Specific [place] 1.025 (1.005-1.025) Urine Protein Negative (Neg-Trace) mg/dL Urine Glucose (UA) Negative (Negative) mg/dL Urine Ketones Negative (Negative) mg/dL Urine Blood Negative (Negative) Urine Nitrite Negative (Negative) Ur Leukocyte Esterase Negative (Negative) Independent Interpretation I performed an independent interpretation of an: Ultrasound (Abdomen: No acute GB problems) and CT Scan (Abdomen pelvis: No acute intra-abdominal pathology.) Radiology Impression Discussion of test interpretation with radiology: I have reviewed the radiologist's reading. Discharge Plan Discharge Clinical Impression: Abdominal pain Patient Disposition: Home, Self-Care Instructions: Abdominal Pain (ED) Prescriptions: No Action prednisone 20 mg tablet 40 mg PO DAILY 4 Days Qty: 8 0RF prednisone 20 mg tablet 40 mg PO DAILY Qty: 8 0RF doxycycline monohydrate 100 mg capsule 100 mg PO BID 14 Days Qty: 28 0RF omeprazole 20 mg capsule,delayed release(DR/EC) 20 mg PO DAILY betamethasone dipropionate 0.05 % cream topical DIRECTED triamcinolone acetonide 0.1 % cream topical BID PRN albuterol sulfate 90 mcg/actuation HFA aerosol inhaler 2 puff inhalation QID PRN (Reason: wheezing) doxycycline hyclate 100 mg tablet 100 mg PO BID 10 Days Qty: 20 0RF prednisone 20 mg tablet 20 mg PO DAILY 9 Days Qty: 18 0RF Rx Instructions: 3 tabs/60mg for 3 days 2 tabs/40mg for 3 days 1 tab/20mg for 3 days albuterol sulfate [ProAir HFA] 90 mcg/actuation HFA aerosol inhaler 2 puff inhalation Q4-6H PRN (Reason: shortness of breath or wheezing) Qty: 8.5 0RF prednisone 20 mg tablet 60 mg PO DAILY 3 Days Qty: 9 0RF Referrals: Luis Rodas III, MD [Primary Care Provider] - Interventions: ED Discharge Assessment Last Done: 03/11/23 01:48 Discharge Date/Time: 03/11/23 01:59
[2023-03-10 17:54] VITALS: BP 176/80; PULSE 83; RESP 18; TEMP 36.8; O2SAT 99; BMI 35.3
[2023-03-10 18:10] LABS: MANUAL DIFF FLAG NO
[2023-03-10 18:21] LABS: Basophils Absolute Auto 0.1 X10*3/uL (0.0-0.2); Basophils Percent Auto 0.5 % (0-2); Eosinophils Absolute Auto 0.5 X10*3/uL (0.0-0.4); Eosinophils Percent Auto 4.5 % (0-4); Hematocrit 44.8 % (42.0-52.0); Hemoglobin 15.1 g/dl (14.0-18.0); Imm Gran Abs Auto 0.03 X10*3/uL (0.00-0.03); Imm Gran Pct Auto 0.3 % (0.0-0.4); Lymphocytes Absolute Auto 2.3 X10*3/uL (1.2-4.9); Lymphocytes Percent Auto 20.4 % (20-40); Mean Corpuscular HGB Conc 33.7 g/dl (31.0-36.0); Mean Corpuscular Hemoglobin 28.3 pg (27.0-33.0); Mean Corpuscular Volume 84.1 fL (80.0-98.0); Mean Platelet Volume 10.3 fL (9.4-12.4); Monocytes Absolute Auto 0.5 X10*3/uL (0.1-1.2); Monocytes Percent Auto 4.6 % (2-11); Neutrophils Absolute Auto 7.8 x10*3/uL (2.0-8.3); Neutrophils Percent Auto 69.7 % (45-73); Platelet Count 237 X10*3/uL (160-400); Red Blood Count 5.33 X10*6/uL (4.60-5.80); Red Cell Distribution Width 12.3 % (11.0-16.0); White Blood Count 11.2 X10*3/uL (4.8-10.8)
[2023-03-10 18:25] LABS: Alanine Aminotransferase 30 U/L (0-40); Albumin Level 4.3 g/dL (3.5-5.0); Alkaline Phosphatase 108 U/L (39-117); Anion Gap 14 (12-20); Aspartate Amino Transferase 27 U/L (5-37); Bilirubin Total 0.5 mg/dL (0.0-1.0); Blood Urea Nitrogen 24 mg/dL (9-16); Calcium 10.1 mg/dL (8.4-10.2); Carbon Dioxide 23 mmol/L (22-29); Chloride 106 mmol/L (96-108); Creatinine Clr Calc Pharmacy 155.4; Estimated Glomerular Filt Rate > 60; Glucose Random 108 mg/dL (60-115); Lipase 11 U/L (8-78); Potassium 4.4 mmol/L (3.3-5.1); Sodium 139 mmol/L (135-145); Total Protein 7.7 g/dL (6.5-8.0)
[2023-03-10 19:46] VITALS: BP 129/77; PULSE 77; RESP 16; TEMP 37; O2SAT 98
--- NOTE | 2023-03-10 19:47 | MHC.EDTECH ---
PATIENT URINE SAMPLE COLLECTED AND SENT TO LAB ,VITALS SIGN RE CHECK AND IS STABLE .
[2023-03-10 20:07] LABS: Appearance Urine Clear; Color Urine Yellow; Glucose Urine UA Negative (Negative); Leukocyte Esterase Urine Negative (Negative); Nitrite Urine Negative (Negative); PH 5.5 (5.0-9.0); Specific Gravity - Urine 1.025 (1.005-1.025); Urine Blood Negative (Negative); Urine Ketones Negative (Negative); Urine Protein Negative (Neg-Trace)
[2023-03-10] MEDS: Albuterol Sulfate (0.083%) 2.5 MG/3 ML VIAL.NEB 5 MG INHALE (22:49)
[2023-03-10 22:52] VITALS: PULSE 77; RESP 18; O2SAT 99
[2023-03-10] MEDS: Albuterol/Iprat 2.5/0.5MG 3 ML AMPUL.NEB INHALE (23:02)
[2023-03-11 00:19] VITALS: BP 123/59; PULSE 93; RESP 18; TEMP 36.9; O2SAT 95
--- NOTE | 2023-03-11 01:47 | PC.NURSE ---
patient in the process of being discharged patient is aware
== END 2023-03-11 01:59 | disposition home or self-care (01) ==
PROVIDERS: Registered Nurse Emergency; Emergency Provider Emergency Medicine; PCP Internal Medicine
DX: R10.11 Right upper quadrant pain (principal); R31.9 Hematuria, unspecified; R05.9 Cough, unspecified; R50.9 Fever, unspecified; Z79.899 Other long term (current) drug therapy
CPT/HCPCS: 36415; 71046; 74176; 76705; 80053; 81003; 83690; 85025; 94640; 99284; 99285

== ENCOUNTER 2025-05-28 16:51 | Emergency (ER) | payer OTHER, SELFPAY ==
--- NOTE | ~2025-05-28 | XR_ITS ---
CLINICAL HISTORY: CP Chest Radiographs, 2 views Comparison: CR/CA/SR - XR CHEST 2 VIEWS - 03/10/23 18:23 EDT CR/SR - XR CHEST 2 VIEWS - 08/09/22 12:47 EST Findings: No cardiomegaly. Normal mediastinal contours. No pneumothorax. 1.0 cm opacity overlying T11 vertebra seen on the lateral view, likely seen on study from 08/09/22. No pleural effusion. Normal upper abdomen. No acute fracture. Impression: No acute findings. This document has been electronically signed by: Saadia Simpson MD on 05/28/2025 17:44:10
--- NOTE | 2025-05-28 16:54 | ECG_ITS ---
Test Reason : CP Blood Pressure : */* mmHG Vent. Rate : 85 BPM Atrial Rate : 85 BPM P-R Int : 154 ms QRS Dur : 76 ms QT Int : 376 ms P-R-T Axes : 38 21 32 degrees QTcB Int : 447 ms Normal sinus rhythm with sinus arrhythmia Normal ECG When compared with ECG of 30-Mar-2021 02:06, No significant change was found Referred By: Luisa Mccoy Electronically Signed By: EAMON FABIAN
[2025-05-28 17:00] VITALS: BP 166/86; PULSE 88; RESP 18; TEMP 36.4; O2SAT 98; BMI 35.3
--- NOTE | 2025-05-28 17:32 | ED.GENADULT ---
HPI - General Adult General Chief complaint: General Medical Stated complaint: ?Stroke/Chest pain- Sent by pcp Time Seen by Provider: 05/28/25 21:14 Source: patient, RN notes reviewed and old records reviewed Mode of arrival: ambulatory Limitations: no limitations History of Present Illness ED Provider: Dr. Dara Kearney HPI narrative: 39-year-old male with history of asthma, tobacco use, on methadone presenting with episodic dizziness, lightheadedness, heart racing and periods of confusion ongoing for the last 3 days or so. Patient states he 1st noticed these symptoms when he was caring for his brother who requires total care. States that he was using a [employer] lift to lift his brother and noticed that he started to feel dizzy. Was able to lie down and checked his heart rate which was in the 120s, blood pressure was elevated to 150/90. [place] as though he was going to pass out. States that he called 911 at that time and was evaluated by housekeeper cleaning cooking. Reportedly his blood sugar was 103. His blood pressure was improved slightly at 140/80 and he ultimately felt good enough to stay at home. Opted to not come to the hospital. Admits that today he started having these symptoms again. Admits that he notices it when he is up moving around, being active. States that he uses a lot of caffeine. Since these episodes started happening however, he has slowed down on his caffeine intake and has since developed headaches. Called his primary care doctor's office today and was told to come to the emergency department for evaluation of potential many strokes. Patient denies numbness/tingling/weakness of the extremities. His only neurologic symptom is having slight confusion. He has occasional chest discomfort and shortness of breath but has been noncompliant with his asthma medications. Otherwise denies vision changes, sputum production, known sick contacts, extremity swelling or pain, abdominal pain, nausea, vomiting, diarrhea. Related Data Home Medications ?Medication ?Instructions ?Recorded ?Confirmed albuterol sulfate 90 mcg/actuation 2 puff inhalation QID PRN wheezing 03/31/21 aerosol inhaler betamethasone dipropionate 0.05 % appl topical DIRECTED 03/31/21 topical cream omeprazole 20 mg capsule,delayed 20 mg PO DAILY 03/31/21 release triamcinolone acetonide 0.1 % appl topical BID PRN 03/31/21 topical cream Previous Rx's ?Medication ?Instructions ?Recorded prednisone 20 mg tablet 40 mg (2 x 20 mg) PO DAILY 4 days 03/30/21 #8 tabs albuterol sulfate 90 mcg/actuation 2 puff inhalation Q4-6H PRN 03/31/21 aerosol inhaler (ProAir HFA) shortness of breath or wheezing #8.5 grams doxycycline hyclate 100 mg tablet 100 mg PO BID 10 days #20 tabs 03/31/21 prednisone 20 mg tablet 20 mg PO DAILY 9 days #18 tabs 03/31/21 prednisone 20 mg tablet 60 mg (3 x 20 mg) PO DAILY 3 days 05/13/21 #9 tabs doxycycline monohydrate 100 mg 100 mg PO BID 14 days #28 caps 08/09/22 capsule prednisone 20 mg tablet 40 mg (2 x 20 mg) PO DAILY #8 tabs 08/09/22 Allergies Allergy/AdvReac Type Severity Reaction Status Date / Time sulfamethoxazole (From Allergy Severe HIVES Verified 05/28/25 17:03 BACTRIM) trimethoprim (From BACTRIM) Allergy Severe HIVES Verified 05/28/25 17:03 Sulfa (Sulfonamide Allergy Unknown HIVES Verified 05/28/25 17:03 Antibiotics) (SULFA (SULFONAMIDE ANTIBIOTICS)) Review of Systems Review of Systems: as per HPI, full review of systems performed and negative but for the above mentioned pertinent positives and negatives. [facility] Past Medical History Medical History Obesity Asthma Social History Social History Alcohol intake: never Patient Tobacco Use Status: Former Tobacco user Smoked in Last 30 Days: Yes Use of substances other than those prescribed or required for medical reasons: No Advance Directives: No Advance Directives Information Provided: No Physical Exam ED Exam Exam: GENERAL: Ill-Appearing, appears uncomfortable. SKIN: Normal skin color for ethnicity, warm, dry, no rashes noted. HEENT:? Normocephalic, atraumatic, no stridor, dry mucous membranes, dentition intact, EOMI. NECK: Soft, supple, full ROM, midline structures nontender, no step-offs, no deformities, no lymphadenopathy. CHEST: Heart regular rhythm, no murmurs, symmetric chest rise and fall. PULMONARY: Clear to auscultation bilaterally, diminished at the bases, no labored breathing, diffuse inspiratory and expiratory wheezes throughout, no rhonchi. ABDOMINAL: Soft, nondistended, nontender, positive bowel sounds in all quadrants. : Deferred. MUSCULOSKELETAL: Normal tone, full range of motion, no deformities, no peripheral edema. NEURO: Alert and oriented x3, CN II through XII intact, equal strength and sensation bilateral upper and lower extremities, no focal neurologic deficits.? PSYCHIATRIC: Flat affect, fluid speech, good eye contact and appropriate demeanor. Vital Signs: Vital Signs - 24 hr 05/28/25 17:00 05/28/25 20:46 05/28/25 22:43 Temperature 97.5 F 97.8 F Pulse Rate 88 65 70 Respiratory Rate 18 16 18 Blood Pressure 166/86 H 137/80 Pulse Oximetry 98 97 Oxygen Delivery Method Room Air Room Air 05/28/25 23:09 Temperature 97.8 F Pulse Rate 72 Respiratory Rate 16 Blood Pressure 130/60 Pulse Oximetry 95 Oxygen Delivery Method Room Air BMI result Body Mass Index 35.3 Course Course Course Narrative: This is an RME: Additional HPI, ROS, PE not included below will be deferred to primary provider. RME assessment and note performed by: Luisa Mccoy PA-C This is a 39-year-old male who presents emergency department with complaints of multiple episodes of headache, dizziness, chest pain, sweats and shortness for breath. He is neurologically intact, no focal deficits on examination. He did have a injury to his left eye, in his legally blind. NIH stroke scale of 0. He is speaking in full sentences under no acute distress. Symmetric smile. Plan: Labs, viral swabs, further ER evaluation needed. Medications Administered Discontinued Medications Generic Name Dose Route Start Last Admin Trade Name Freq PRN Reason Stop Dose Admin Albuterol Sulfate 2.5 mg/ 0 mg 05/28/25 22:41 05/28/25 22:42 Albuterol/Ipratropium 3 ml INHALE 05/28/25 22:42 1 dose ONCE ONE Administration Medical Decision Making Medical Decision Making [facility] Narrative: Patient presents today with chief complaint of near syncope.? I considered multiple diagnoses of etiology including most importantly cardiac arrhythmia, massive PE or hypoxic event, seizure, subarachnoid hemorrhage, vascular catastrophe such as AAA, as well as other more common etiologies such as a vasovagal syncope and orthostasis as well as panic attack, drug or alcohol use and medication effects.? Broad-based work-up was initiated to evaluate etiology including blood work, EKG and chest x-rays. 12:09 AM 05/29/2025 (Dr. Dara Kearney, D.O.) D-dimer negative. Patient's workup today has been reassuring. Do not think these are signs or symptoms of TIA or stroke. We had an extensive discussion regarding signs and symptoms of strokes. It sounds like he is having near syncopal episodes based on his description of the events. He gets lightheaded, heart races and he feels as though he is going to pass out. His workup has been relatively reassuring. No arrhythmia on telemetry. EKG is normal. White blood cell count slightly elevated at 14 but no other signs or symptoms of infectious process. He has no pneumonia on chest x-ray. He does have pretty substantial wheezes on lung exam and required a DuoNeb which resolved his wheezing completely. He reports improved work of breathing and feels much better. He is having a slight caffeine withdrawal headache but otherwise feels good. Using shared decision making, plan for discharge home to follow-up with primary care and/or specialist. Patient understands and agrees with plan for discharge. Discharged home in stable condition. Differential Diagnosis Differential Diagnoses: The differential diagnosis associated with the presentation includes (As above) Admission/Observation Consideration of admission/observation: Escalation of care including admission/observation considered Lab Data MDM Lab Attestation statement: I reviewed the patient's lab results. 05/28/25 18:09 05/28/25 18:08 Labs: Lab Results 05/28/25 05/28/25 05/28/25 Range/Units 18:08 18:09 20:57 WBC 14.0 H (4.8-10.8) X10*3/uL RBC 5.09 (4.60-5.80) X10*6/uL Hgb 14.8 (14.0-18.0) g/dl Hct 43.5 (42.0-52.0) % MCV 85.5 (80.0-98.0) fL MCH 29.1 (27.0-33.0) pg MCHC 34.0 (31.0-36.0) g/dl RDW 12.5 (11.0-16.0) % Plt Count 230 (160-400) X10*3/uL MPV 10.3 (9.4-12.4) fL Immature Gran % (Auto) 0.5 H (0.0-0.4) % Neut % (Auto) 75.6 H (45-73) % Lymph % (Auto) 16.5 L (20-40) % Drew % (Auto) 5.2 (2-11) % Eos % (Auto) 1.8 (0-4) % Baso % (Auto) 0.4 (0-2) % Lymph # (Auto) 2.3 (1.2-4.9) X10*3/uL Drew # (Auto) 0.7 (0.1-1.2) X10*3/uL Eos # (Auto) 0.3 (0.0-0.4) X10*3/uL Baso # (Auto) 0.1 (0.0-0.2) X10*3/uL Abs Immat Gran (auto) 0.07 H (0.00-0.03) X10*3/uL Absolute Neuts (auto) 10.6 H (2.0-8.3) x10*3/uL Absolute Nucleated RBC 0.000 (0.0-0.012) X10*3/uL Nucleated RBC % (auto) 0.0 (0.0-0.2) /100WBC D-Dimer High Sensitivty NG/ML Sodium 141 (135-145) mmol/L Potassium 4.5 (3.3-5.1) mmol/L Chloride 107 (96-108) mmol/L Carbon Dioxide 27 (22-29) mmol/L Anion Gap 12 (12-20) BUN 21 H (9-16) mg/dL Creatinine 0.96 (0.5-1.4) mg/dL Estim Creat Clear Calc 131.7 Estimated GFR > 60 Random Glucose 96 (60-115) mg/dL Calcium 9.0 D (8.4-10.2) mg/dL Magnesium 2.1 (1.6-2.6) mg/dL Total Bilirubin 0.3 (0.0-1.0) mg/dL Direct Bilirubin 0.1 (0.0-0.5) mg/dL AST 32 (5-37) U/L ALT 34 (0-40) U/L Alkaline Phosphatase 91 (39-117) U/L Troponin I High Sens < 2.7 (<3.5-35.0) ng/L Total Protein 7.3 (6.5-8.0) g/dL Albumin 4.3 (3.5-5.0) g/dL Lipase 12 (8-78) U/L Urine Color Yellow Urine Appearance Clear Urine pH 6.5 (5.0-9.0) Ur Specific [place] 1.020 (1.005-1.025) Urine Protein Negative (Neg-Trace) mg/dL Urine Glucose (UA) Negative (Negative) mg/dL Urine Ketones Negative (Negative) mg/dL Urine Blood Negative (Negative) Urine Nitrite Negative (Negative) Ur Leukocyte Esterase Negative (Negative) COVID-19 (PAT) Negative (Negative) COVID-19 Clin Com See Note Influenza Type A (JOSETTE) Negative (Negative) Influenza Type B (JOSETTE) Negative (Negative) Influenza A & B Note See Note 05/28/25 Range/Units 22:34 WBC (4.8-10.8) X10*3/uL RBC (4.60-5.80) X10*6/uL Hgb (14.0-18.0) g/dl Hct (42.0-52.0) % MCV (80.0-98.0) fL MCH (27.0-33.0) pg MCHC (31.0-36.0) g/dl RDW (11.0-16.0) % Plt Count (160-400) X10*3/uL MPV (9.4-12.4) fL Immature Gran % (Auto) (0.0-0.4) % Neut % (Auto) (45-73) % Lymph % (Auto) (20-40) % Drew % (Auto) (2-11) % Eos % (Auto) (0-4) % Baso % (Auto) (0-2) % Lymph # (Auto) (1.2-4.9) X10*3/uL Drew # (Auto) (0.1-1.2) X10*3/uL Eos # (Auto) (0.0-0.4) X10*3/uL Baso # (Auto) (0.0-0.2) X10*3/uL Abs Immat Gran (auto) (0.00-0.03) X10*3/uL Absolute Neuts (auto) (2.0-8.3) x10*3/uL Absolute Nucleated RBC (0.0-0.012) X10*3/uL Nucleated RBC % (auto) (0.0-0.2) /100WBC D-Dimer High Sensitivty < 150 NG/ML Sodium (135-145) mmol/L Potassium (3.3-5.1) mmol/L Chloride (96-108) mmol/L Carbon Dioxide (22-29) mmol/L Anion Gap (12-20) BUN (9-16) mg/dL Creatinine (0.5-1.4) mg/dL Estim Creat Clear Calc Estimated GFR Random Glucose (60-115) mg/dL Calcium (8.4-10.2) mg/dL Magnesium (1.6-2.6) mg/dL Total Bilirubin (0.0-1.0) mg/dL Direct Bilirubin (0.0-0.5) mg/dL AST (5-37) U/L ALT (0-40) U/L Alkaline Phosphatase (39-117) U/L Troponin I High Sens (<3.5-35.0) ng/L Total Protein (6.5-8.0) g/dL Albumin (3.5-5.0) g/dL Lipase (8-78) U/L Urine Color Urine Appearance Urine pH (5.0-9.0) Ur Specific [place] (1.005-1.025) Urine Protein (Neg-Trace) mg/dL Urine Glucose (UA) (Negative) mg/dL Urine Ketones (Negative) mg/dL Urine Blood (Negative) Urine Nitrite (Negative) Ur Leukocyte Esterase (Negative) COVID-19 (PAT) (Negative) COVID-19 Clin Com Influenza Type A (JOSETTE) (Negative) Influenza Type B (JOSETTE) (Negative) Influenza A & B Note Independent Interpretation I performed an independent interpretation of an: EKG and Plain X-Ray Interpretation: My independent interpretation of the ECG reveals normal sinus rhythm with rate of 85, normal axis, normal intervals, no ST elevations or depressions to suggest ischemic changes, relatively unchanged from previous on 03/30/2021. My independent interpretation of the chest x-ray reveals no consolidations, pulmonary edema, pleural effusion, pneumothorax, obvious bony abnormalities. Radiology Impression Discussion of test interpretation with radiology: I have reviewed the radiologist's reading. External Record Review External record reviewed: Inpatient record Prescription Management I considered prescription management with: Pain Medication Chronic Conditions Patient?s care impacted by: Other (asthma) Social Determinants Patient?s care significantly limited by Social Determinants of Health including: Alcoholism and drug addiction in family and Other Social Determinant of Health Discharge Plan Discharge Clinical Impression: Acute asthma exacerbation, Episodic lightheadedness, Current nicotine use, Excessive caffeine intake Patient Disposition: Home, Self-Care Instructions: Lightheadedness (ED), Asthma (ED) Additional Instructions: Your workup today has been reassuring. The symptoms you are describing are not consistent with a stroke. However, be on the look out for any other stroke-like symptoms, including: Facial droop, difficulty speaking, slurred speech, numbness or weakness on 1 side of your body, difficulty walking, severe headache or passing out. Follow up with your primary care doctor as soon as possible. Return to the hospital with any new or worsening symptoms. Try to wean off of your tobacco and caffeine use as much as possible. Please take your asthma medications every day. Prescriptions: No Action prednisone 20 mg tablet 40 mg PO DAILY 4 Days Qty: 8 0RF prednisone 20 mg tablet 40 mg PO DAILY Qty: 8 0RF doxycycline monohydrate 100 mg capsule 100 mg PO BID 14 Days Qty: 28 0RF omeprazole 20 mg capsule,delayed release(DR/EC) 20 mg PO DAILY betamethasone dipropionate 0.05 % cream topical DIRECTED triamcinolone acetonide 0.1 % cream topical BID PRN albuterol sulfate 90 mcg/actuation HFA aerosol inhaler 2 puff inhalation QID PRN (Reason: wheezing) doxycycline hyclate 100 mg tablet 100 mg PO BID 10 Days Qty: 20 0RF prednisone 20 mg tablet 20 mg PO DAILY 9 Days Qty: 18 0RF Rx Instructions: 3 tabs/60mg for 3 days 2 tabs/40mg for 3 days 1 tab/20mg for 3 days albuterol sulfate [ProAir HFA] 90 mcg/actuation HFA aerosol inhaler 2 puff inhalation Q4-6H PRN (Reason: shortness of breath or wheezing) Qty: 8.5 0RF prednisone 20 mg tablet 60 mg PO DAILY 3 Days Qty: 9 0RF Print Language: Grenadian
[2025-05-28 18:15] LABS: MANUAL DIFF FLAG NO
[2025-05-28 18:18] LABS: Hematocrit 43.5 % (42.0-52.0); Hemoglobin 14.8 g/dl (14.0-18.0); Imm Gran Abs Auto 0.07 X10*3/uL (0.00-0.03); Imm Gran Pct Auto 0.5 % (0.0-0.4); Lymphocytes Absolute Auto 2.3 X10*3/uL (1.2-4.9); Mean Corpuscular HGB Conc 34.0 g/dl (31.0-36.0); Mean Corpuscular Hemoglobin 29.1 pg (27.0-33.0); Mean Corpuscular Volume 85.5 fL (80.0-98.0); NRBC Abs Auto 0.000 X10*3/uL (0.0-0.012); NRBC Pct Auto 0.0 /100WBC (0.0-0.2); Platelet Count 230 X10*3/uL (160-400); Red Blood Count 5.09 X10*6/uL (4.60-5.80); White Blood Count 14.0 X10*3/uL (4.8-10.8)
[2025-05-28 18:29] LABS: COVID-19 Test Negative (Negative); IDNOW Serial# 58CA691E
[2025-05-28 18:30] LABS: Alanine Aminotransferase 34 U/L (0-40); Albumin Level 4.3 g/dL (3.5-5.0); Alkaline Phosphatase 91 U/L (39-117); Anion Gap 12 (12-20); Aspartate Amino Transferase 32 U/L (5-37); Blood Urea Nitrogen 21 mg/dL (9-16); Calcium 9.0 mg/dL (8.4-10.2); Carbon Dioxide 27 mmol/L (22-29); Chloride 107 mmol/L (96-108); Creatinine Clr Calc Pharmacy 131.7; Estimated Glomerular Filt Rate > 60; Lipase 12 U/L (8-78); Magnesium 2.1 mg/dL (1.6-2.6); Potassium 4.5 mmol/L (3.3-5.1); Sodium 141 mmol/L (135-145); Total Protein 7.3 g/dL (6.5-8.0)
[2025-05-28 18:32] LABS: IDNOW Serial# 55D5AD1C; Influenza B2 Negative (Negative)
[2025-05-28 18:36] LABS: Troponin-I High Sensitivity < 2.7 ng/L (<3.5-35.0)
[2025-05-28 20:46] VITALS: BP 137/80; PULSE 65; RESP 16; TEMP 36.6; O2SAT 97
--- OUTSIDE RECORDS SUMMARY | 2025-05-28 20:48 | XMS_ITS ---
Author Name [facility] Organization Unknown Care Team Organization Name Specialty Phone Email Start Date End [email or web address]
--- NOTE | 2025-05-28 20:50 | PC.NURSE ---
pt reports fatigue, lightheadedness and general foggy feeling, this has happened before, mild R sided chest pain, denies headache, denies changes in vision, reports glass eye. pt called pcp today to advise of symptoms and they asked that he come to the ED, v/s WNL. respirations even and unlabored.
[2025-05-28 21:04] LABS: Appearance Urine Clear; Glucose Urine UA Negative (Negative); PH 6.5 (5.0-9.0); Specific Gravity - Urine 1.020 (1.005-1.025)
[2025-05-28] MEDS: Albuterol Sulfate 2.5 MG, Albuterol/Iprat 2.5/0.5MG 3 ML 3 ML INHALE (22:42)
[2025-05-28 22:43] VITALS: PULSE 70; RESP 18; O2SAT 99
[2025-05-28 23:03] LABS: D Dimer High Sensitivity < 150 NG/ML
[2025-05-28 23:09] VITALS: BP 130/60; PULSE 72; RESP 16; TEMP 36.6; O2SAT 95
[2025-05-29 00:23] VITALS: BP 133/77; PULSE 79; RESP 16; TEMP 36.4; O2SAT 96
== END 2025-05-29 00:30 | disposition home or self-care (01) ==
PROVIDERS: Physician Assistant Medical; Emergency Provider Emergency Medicine; PCP Internal Medicine
DX: J45.901 Unspecified asthma with (acute) exacerbation (principal); R42 Dizziness and giddiness; R07.9 Chest pain, unspecified; R06.02 Shortness of breath; F15.90 Other stimulant use, unspecified, uncomplicated; Z87.891 Personal history of nicotine dependence
CPT/HCPCS: 36415; 71046; 80048; 80076; 81003; 83690; 83735; 84484; 85025; 85379; 87502; 87635; 93005; 94640; 99284; 99285

== ENCOUNTER → 2025-05-28 16:54 | Outpatient (BNV) | payer OTHER, SELFPAY | PROVIDERS: Emergency Provider Emergency Medicine; PCP Internal Medicine; Visit Provider Internal Medicine | DX: R07.9 Chest pain, unspecified (principal) | CPT/HCPCS: 93010 ==

== ENCOUNTER → 2025-05-28 17:04 | Outpatient (BNV) | payer OTHER, SELFPAY | PROVIDERS: PCP Internal Medicine; Visit Provider Radiology Diagnostic Radiology | DX: R07.9 Chest pain, unspecified (principal) | CPT/HCPCS: 71046 ==